=== PATIENT | male | born 1955 | race Caucasian/White ===

== ENCOUNTER 2019-01-14 17:21 | Inpatient (IN) | payer MEDICARE ==
--- NOTE | 2019-01-14 18:00 | ED ---
Psych HPI - General Chief Complaint: Psychiatric Symptoms Stated Complaint: petition Time Seen by Provider: 01/14/19 17:39 Source: patient, police, RN notes reviewed Mode of arrival: ambulatory - History of Present Illness Initial Comments: This is a 63-year-old male history of schizophrenia who is here a pickup order. He's been hallucinating thinking people are out to get him and kill him try to poison him. He is a disheveled demonstrate poor hygiene. He was brought in by [facility]. He denies any problems other than fingernail problems. MD Complaint: other - Related Data Home Medications Medication Instructions Recorded Confirmed No Known Home Medications 08/30/15 01/14/19 Allergies Allergy/AdvReac Type Severity Reaction Status Date / Time Penicillins Allergy Anaphylaxis Verified 01/14/19 18:11 Review of Systems ROS Statement: Those systems with pertinent positive or pertinent negative responses have been documented in the HPI. ROS Other: All systems not noted in ROS Statement are negative. Past Medical History Past Medical History: No Reported History History of Any Multi-Drug Resistant Organisms: None Reported Past Surgical History: Orthopedic Surgery Past Psychological History: No Psychological Hx Reported, Bipolar, Depression, Schizophrenia Smoking Status: Former smoker Past Alcohol Use History: Occasional Past Drug Use History: Marijuana General Exam - General Exam Comments Initial Comments: This is a well-developed well-nourished awake alert oriented times female who does demonstrate some flight of ideas he does demonstrate poor hygiene Limitations: no limitations General appearance: alert, anxious Head exam: Present: atraumatic, normocephalic, normal inspection Eye exam: Present: normal appearance, PERRL, EOMI. Absent: scleral icterus, conjunctival injection, periorbital swelling ENT exam: Present: normal exam, mucous membranes moist Neck exam: Present: normal inspection. Absent: tenderness, meningismus, lymphadenopathy Respiratory exam: Present: normal lung sounds bilaterally. Absent: respiratory distress, wheezes, rales, rhonchi, stridor Cardiovascular Exam: Present: regular rate, normal rhythm, normal heart sounds. Absent: systolic murmur, diastolic murmur, rubs, gallop, clicks GI/Abdominal exam: Present: soft, normal bowel sounds. Absent: distended, tenderness, guarding, rebound, rigid Extremities exam: Present: normal inspection, full ROM, normal capillary refill. Absent: tenderness, pedal edema, joint swelling, calf tenderness Back exam: Present: normal inspection Neurological exam: Present: alert, oriented X3, CN II-XII intact Psychiatric exam: Present: anxious, manic Skin exam: Present: warm, dry, intact, normal color. Absent: rash Course Vital Signs 01/14/19 01/14/19 17:25 18:28 Temperature 100.0 F H 98.8 F Pulse Rate 119 H 86 Respiratory 22 17 Rate Blood Pressure 194/138 169/109 O2 Sat by Pulse 99 100 Oximetry - Reevaluation(s) Reevaluation #1: 01/14/19 21:02 Patient medically cleared and believe the elevated temperature secondary to smoking this prior to her temperature being taken also he was dehydrated is improved after IV fluids Medical Decision Making - Medical Decision Making Treatment with medical clearance evaluated by the EPS department he was admitted. I did fill out a clinical certification. - Lab Data Result diagrams: 01/14/19 19:13 01/14/19 19:13 Lab Results 01/14/19 01/14/19 01/14/19 Range/Units 19:13 19:13 20:23 WBC 11.9 H (3.8-10.6) k/uL RBC 5.32 (4.30-5.90) m/uL Hgb 16.1 (13.0-17.5) gm/dL Hct 47.6 (39.0-53.0) % MCV 89.5 (80.0-100.0) fL MCH 30.3 (25.0-35.0) pg MCHC 33.9 (31.0-37.0) g/dL RDW 13.6 (11.5-15.5) % Plt Count 285 (150-450) k/uL Neutrophils % 82 % Lymphocytes % 9 % Monocytes % 6 % Eosinophils % 2 % Basophils % 1 % Neutrophils # 9.7 H (1.3-7.7) k/uL Lymphocytes # 1.1 (1.0-4.8) k/uL Monocytes # 0.7 (0-1.0) k/uL Eosinophils # 0.2 (0-0.7) k/uL Basophils # 0.1 (0-0.2) k/uL Sodium 141 (137-145) mmol/L Potassium 4.2 (3.5-5.1) mmol/L Chloride 102 (98-107) mmol/L Carbon Dioxide 26 (22-30) mmol/L Anion Gap 13 mmol/L BUN 19 (9-20) mg/dL Creatinine 0.92 (0.66-1.25) mg/dL Est GFR (CKD-EPI)AfAm >90 (>60 ml/min/1.73 sqM) Est GFR (CKD-EPI)NonAf 88 (>60 ml/min/1.73 sqM) Glucose 107 H (74-99) mg/dL Calcium 10.3 H (8.4-10.2) mg/dL Total Bilirubin 0.7 (0.2-1.3) mg/dL AST 25 (17-59) U/L ALT 14 L (21-72) U/L Alkaline Phosphatase 54 (38-126) U/L Creatine Kinase 102 (55-170) U/L Total Protein 7.7 (6.3-8.2) g/dL Albumin 4.7 (3.5-5.0) g/dL Urine Color Light Yellow Urine Appearance Clear (Clear) Urine pH 6.5 (5.0-8.0) Ur Specific [place] 1.008 (1.001-1.035) Urine Protein Negative (Negative) Urine Glucose (UA) Negative (Negative) Urine Ketones Negative (Negative) Urine Blood Negative (Negative) Urine Nitrite Negative (Negative) Urine Bilirubin Negative (Negative) Urine Urobilinogen <2.0 (<2.0) mg/dL Ur Leukocyte Esterase Small H (Negative) Urine RBC 1 (0-5) /hpf Urine WBC 5 (0-5) /hpf Urine Mucus Occasional H (None) /hpf Urine Opiates Screen Not Detected (NotDetected) Ur Oxycodone Screen Not Detected (NotDetected) Urine Methadone Screen Not Detected (NotDetected) Ur Propoxyphene Screen Not Detected (NotDetected) Ur Barbiturates Screen Not Detected (NotDetected) U Tricyclic Antidepress Not Detected (NotDetected) Ur Phencyclidine Scrn Not Detected (NotDetected) Ur Amphetamines Screen Not Detected (NotDetected) U Methamphetamines Scrn Not Detected (NotDetected) U Benzodiazepines Scrn Not Detected (NotDetected) Urine Cocaine Screen Not Detected (NotDetected) U Marijuana (THC) Screen Detected H (NotDetected) - Radiology Data Radiology results: report reviewed (Review the imaging and report no acute findings), image reviewed Disposition Clinical Impression: Schizophrenia, acute, Dehydration, Tachycardia Disposition: TRANSFER TO PSYCH HOSP/UNIT Condition: Stable Referrals: None,Stated [Primary Care Provider] - 1-2 days
--- NOTE | 2019-01-14 19:25 | XR ---
EXAMINATION: XR chest 2V DATE AND TIME: 01/14/2019 6:30 PM CLINICAL INDICATION: PHH; cough TECHNIQUE: Departmental protocol COMPARISON: None FINDINGS: The lungs are clear. The pleural spaces are negative. The cardiac silhouette is not enlarged. The remainder of the mediastinal silhouette is unremarkable. The skeletal structures and soft tissues are negative for acute findings. IMPRESSION: NO ACUTE PROCESS.
[2019-01-14 19:30] LABS: Basophils # (A) 0.1 k/uL (0-0.2); Basophils % (A) 1 %; Eosinophils # (A) 0.2 k/uL (0-0.7); Eosinophils % (A) 2 %; HCT 47.6 % (39.0-53.0); HGB 16.1 gm/dL (13.0-17.5); Lymphocytes # (A) 1.1 k/uL (1.0-4.8); Lymphocytes % (A) 9 %; MCH 30.3 pg (25.0-35.0); MCHC 33.9 g/dL (31.0-37.0); MCV 89.5 fL (80.0-100.0); Mean Platelet Volume 6.8; Monocytes # (A) 0.7 k/uL (0-1.0); Monocytes % (A) 6 %; Neutrophils # (A) 9.7 k/uL (1.3-7.7); Neutrophils % (A) 82 %; Platelet Count 285 k/uL (150-450); RBC 5.32 m/uL (4.30-5.90); RDW 13.6 % (11.5-15.5); WBC 11.9 k/uL (3.8-10.6)
[2019-01-14 19:38] LABS: ALT 14 U/L (21-72); AST 25 U/L (17-59); African American GFR (CKD) >90 (>60 ml/min/1.73 sqM); Albumin 4.7 g/dL (3.5-5.0); Alkaline Phosphatase 54 U/L (38-126); Anion Gap 13 mmol/L; Blood Urea Nitrogen 19 mg/dL (9-20); Calcium 10.3 mg/dL (8.4-10.2); Carbon Dioxide 26 mmol/L (22-30); Chloride 102 mmol/L (98-107); Creatine Kinase 102 U/L (55-170); Glucose 107 mg/dL (74-99); Non-African American GFR(CKD) 88 (>60 ml/min/1.73 sqM); Potassium 4.2 mmol/L (3.5-5.1); Sodium 141 mmol/L (137-145); Total Bilirubin 0.7 mg/dL (0.2-1.3); Total Protein 7.7 g/dL (6.3-8.2)
[2019-01-14] MEDS ORDERED: SODIUM CHLORIDE 0.9% 1,000 ML IV STA (19:46)
[2019-01-14 20:45] LABS: Appearance,Urine Clear (Clear); Bilirubin,Urine Negative (Negative); Blood,Urine Negative (Negative); Color,Urine Light Yellow; Glucose,Urine (UA) Negative (Negative); Ketones,Urine Negative (Negative); Leukocyte Esterase,Urine Small (Negative); Mucus,Urine Occasional /hpf; Nitrite,Urine Negative (Negative); PH, Urine 6.5 (5.0-8.0); Protein,Urine Negative (Negative); RBC,Urine 1 /hpf (0-5); Specific Gravity,Urine 1.008 (1.001-1.035); Urobilinogen,Urine <2.0 mg/dL (<2.0); WBC,Urine 5 /hpf (0-5)
[2019-01-14 20:53] LABS: Amphetamine Screen,Urine Not Detected (NotDetected); Barbiturate Screen,Urine Not Detected (NotDetected); Benzodiazepines Screen,Urine Not Detected (NotDetected); Cocaine Screen,Urine Not Detected (NotDetected); Methadone Screen, Urine Not Detected (NotDetected); Opiate Screen,Urine Not Detected (NotDetected); Oxycodone Screen, Urine Not Detected (NotDetected); Phencyclidine Screen,Urine Not Detected (NotDetected); Tricyclic Antidepressant,Urine Not Detected (NotDetected); Urn Cannabinoid Scrn Detected (NotDetected)
[2019-01-14] MEDS ORDERED: hydrALAZINE HCL 20 MG/ML 1 ML VIAL IVP STA (21:50)
[2019-01-14] MEDS ORDERED: ACETAMINOPHEN TAB 500 MG TAB PO STA (21:59)
[2019-01-14] MEDS ORDERED: MAG HYDROX/AL HYDROX/SIMETH 30 ML CUP PO PRN (22:35)
[2019-01-14] MEDS ORDERED: ACETAMINOPHEN TAB 325 MG TAB PO PRN (22:35)
[2019-01-14] MEDS ORDERED: MAGNESIUM HYDROXIDE 2,400 MG/10 ML CUP PO PRN (22:35)
[2019-01-14] MEDS ORDERED: ZIPRASIDONE 20 MG VIAL IM PRN (22:35)
[2019-01-14] MEDS ORDERED: LORazepam 2 MG/ML INJ IM PRN (22:41)
[2019-01-15 00:02] VITALS: BMI 25.9
--- NOTE | 2019-01-15 02:01 | P.MDCNMH ---
History of Present Illness H&P Date: 01/15/19 Chief Complaint: Acute psychosis 63-year-old male denies any past medical history Patient denies any current complaints he denies any mental health problems. However by reviewing records seems like Police Department brought to the hospital due to acute psychosis and hallucinations patient has history of schizophrenia seems like he's not been compliant with medications. I ideation thinking people trying to poison him He currently denies any chest pain fevers chills coughing shortness of breath abdominal pain nausea vomiting Review of Systems Pertinent positives as noted in HPI. All other systems were reviewed and are negative Past Medical History Past Medical History: No Reported History History of Any Multi-Drug Resistant Organisms: None Reported Past Surgical History: Orthopedic Surgery Additional Past Surgical History / Comment(s): Left knee surg Past Psychological History: No Psychological Hx Reported, Bipolar, Depression, Schizophrenia Smoking Status: Former smoker Past Alcohol Use History: Occasional Past Drug Use History: Marijuana Medications and Allergies Home Medications Medication Instructions Recorded Confirmed Type No Known Home Medications 08/30/15 01/15/19 History Allergies Allergy/AdvReac Type Severity Reaction Status Date / Time Penicillins Allergy Unknown Anaphylaxis Verified 01/15/19 00:53 Physical Exam Vitals: Vital Signs Temp Pulse Pulse Resp BP BP Pulse Ox 01/14/19 23:54 97.7 F 100 16 145/99 100 01/14/19 22:21 157/99 01/14/19 18:28 98.8 F 86 17 169/109 100 01/14/19 17:25 100.0 F H 119 H 22 194/138 99 Intake and Output 01/14/19 01/14/19 01/15/19 14:59 22:59 06:59 Other: Weight 84.958 kg 81.873 kg Constitutional: No acute distress, conversant, pleasant, patient cleaned up after taking shower Eyes: Anicteric sclerae, moist conjunctiva, no lid-lag Pupils equal round reactive to light ENMT: NC/AT Oropharynx clear, no erythema, exudates Neck: Supple, FROM, no masses, or JVD No carotid bruits No thyromegaly Lungs: Clear to auscultation Clear to percussion Normal respiratory effort, no accessory muscle use Cardiovascular: Heart regular in rate and rhythm, No murmurs, gallops, or rubs No peripheral edema Abdominal: Soft Nontender, no guarding, rebound or rigidity Abdomen moving with respiration Normoactive bowel sounds No hepatomegaly, No splenomegaly No palpable mass No abdominal wall hernia noted Skin: Normal temperature, tone, texture, turgor No induration No subcutaneous nodules No rash, lesions No ulcers Extremities: No digital cyanosis No clubbing Pedal pulses intact and symmetrical Radial pulses intact and symmetrical No calf tenderness Psychiatric: Alert and oriented to person, place and time Flight of ideas Poor judgment Neuro Muscles Strength 5/5 in all 4 extremities Sensation to light touch grossly present throughout Cranial nerves II-XII grossly intact No focal sensory deficits Lymphatics: no palpable cervical or supraclavicular , or inguinal lymph nodes Cranial Nerve Examination - Cranial Nerves Cranial Nerve II- Optic: Intact Cranial Nerve III- Oculomotor: Intact Cranial Nerve IV- Trochlear: Intact Cranial Nerve V- Trigeminal: Intact Cranial Nerve - Abducens: Intact Cranial Nerve VII- Facial: Intact Cranial Nerve VIII- Auditory: Intact Cranial Nerve IX- Glossopharyngeal: Intact Cranial Nerve X- Vagus: Intact Cranial Nerve XI- Accessory: Intact Cranial Nerve XII- Hypoglossal: Intact Results CBC & Chem 7: 01/14/19 19:13 01/14/19 19:13 Labs: Abnormal Lab Results - Last 24 Hours (Table) 01/14/19 01/14/19 01/14/19 Range/Units 19:13 19:13 20:23 WBC 11.9 H (3.8-10.6) k/uL Neutrophils # 9.7 H (1.3-7.7) k/uL Glucose 107 H (74-99) mg/dL Calcium 10.3 H (8.4-10.2) mg/dL ALT 14 L (21-72) U/L Ur Leukocyte Esterase Small H (Negative) Urine Mucus Occasional H (None) /hpf U Marijuana (THC) Screen Detected H (NotDetected) Assessment and Plan Assessment: 63-year-old male with history of schizophrenia brought into the hospital by police department due to abnormal behaviors and hallucinations Plan: Acute schizophrenia and hallucinations Management per psych Low risk for DVT patient ambulatory Thank you for allowing us to participate in the care of this patient. We will follow peripherally. Do not hesitate to contact us with questions. Someone can be reached from the [facility] hospitalist group at all hours of the day at [phone].
[2019-01-15] MEDS: LORazepam 1 MG TAB PO PRN ×2 (05:19→12:35)
[2019-01-15 11:54] LABS: Hemoglobin A1C 5.5 % (4.0-6.0)
[2019-01-15] MEDS: HALOPERIDOL 1 MG TAB PO SCH ×2 (12:35→20:32)
[2019-01-15] MEDS ORDERED: HALOPERIDOL LACTATE 5 MG/ML 1 ML VIAL IM PRN (13:12)
--- NOTE | 2019-01-15 13:24 | P.HP ---
Psychiatric H&P - . H&P Date: 01/15/19 History & Physical: Allergies Allergy/AdvReac Type Severity Reaction Status Date / Time Penicillins Allergy Unknown Anaphylaxis Verified 01/15/19 00:53 Vital Signs Temp 97.8 F 01/15/19 06:41 Pulse 76 01/15/19 06:41 Resp 20 01/15/19 06:41 BP 139/68 01/15/19 06:41 Pulse Ox 100 01/14/19 23:54 Intake & Output 01/14/19 01/15/19 01/15/19 18:59 06:59 18:59 Weight 84.958 kg 81.873 kg Laboratory Last Values WBC 11.9 k/uL (3.8-10.6) H 01/14/19 19:13 RBC 5.32 m/uL (4.30-5.90) 01/14/19 19:13 Hgb 16.1 gm/dL (13.0-17.5) 01/14/19 19:13 Hct 47.6 % (39.0-53.0) 01/14/19 19:13 MCV 89.5 fL (80.0-100.0) 01/14/19 19:13 MCH 30.3 pg (25.0-35.0) 01/14/19 19:13 MCHC 33.9 g/dL (31.0-37.0) 01/14/19 19:13 RDW 13.6 % (11.5-15.5) 01/14/19 19:13 Plt Count 285 k/uL (150-450) 01/14/19 19:13 Neutrophils % 82 % 01/14/19 19:13 Lymphocytes % 9 % 01/14/19 19:13 Monocytes % 6 % 01/14/19 19:13 Eosinophils % 2 % 01/14/19 19:13 Basophils % 1 % 01/14/19 19:13 Neutrophils # 9.7 k/uL (1.3-7.7) H 01/14/19 19:13 Lymphocytes # 1.1 k/uL (1.0-4.8) 01/14/19 19:13 Monocytes # 0.7 k/uL (0-1.0) 01/14/19 19:13 Eosinophils # 0.2 k/uL (0-0.7) 01/14/19 19:13 Basophils # 0.1 k/uL (0-0.2) 01/14/19 19:13 Sodium 141 mmol/L (137-145) 01/14/19 19:13 Potassium 4.2 mmol/L (3.5-5.1) 01/14/19 19:13 Chloride 102 mmol/L (98-107) 01/14/19 19:13 Carbon Dioxide 26 mmol/L (22-30) 01/14/19 19:13 Anion Gap 13 mmol/L 01/14/19 19:13 BUN 19 mg/dL (9-20) 01/14/19 19:13 Creatinine 0.92 mg/dL (0.66-1.25) 01/14/19 19:13 Est GFR (CKD-EPI)AfAm >90 (>60 ml/min/1.73 sqM) 01/14/19 19:13 Est GFR (CKD-EPI)NonAf 88 (>60 ml/min/1.73 sqM) 01/14/19 19:13 Glucose 107 mg/dL (74-99) H 01/14/19 19:[address] Glu mg/dL 111 01/14/19 19:13 Hemoglobin A1c 5.5 % (4.0-6.0) 01/14/19 19:13 Calcium 10.3 mg/dL (8.4-10.2) H 01/14/19 19:13 Total Bilirubin 0.7 mg/dL (0.2-1.3) 01/14/19 19:13 AST 25 U/L (17-59) 01/14/19 19:13 ALT 14 U/L (21-72) L 01/14/19 19:13 Alkaline Phosphatase 54 U/L (38-126) 01/14/19 19:13 Creatine Kinase 102 U/L (55-170) 01/14/19 19:13 Total Protein 7.7 g/dL (6.3-8.2) 01/14/19 19:13 Albumin 4.7 g/dL (3.5-5.0) 01/14/19 19:13 Triglycerides 142 mg/dL (<150) 01/14/19 19:13 Cholesterol 198 mg/dL (<200) 01/14/19 19:13 LDL Cholesterol, Calc 85 mg/dL (0-99) 01/14/19 19:13 HDL Cholesterol 85 mg/dL (40-60) H 01/14/19 19:13 TSH 2.860 mIU/L (0.465-4.680) 01/14/19 19:13 Urine Color Light Yellow 01/14/19 20:23 Urine Appearance Clear (Clear) 01/14/19 20:23 Urine pH 6.5 (5.0-8.0) 01/14/19 20:23 Ur Specific [place] 1.008 (1.001-1.035) 01/14/19 20:23 Urine Protein Negative (Negative) 01/14/19 20:23 Urine Glucose (UA) Negative (Negative) 01/14/19 20:23 Urine Ketones Negative (Negative) 01/14/19 20:23 Urine Blood Negative (Negative) 01/14/19 20:23 Urine Nitrite Negative (Negative) 01/14/19 20:23 Urine Bilirubin Negative (Negative) 01/14/19 20:23 Urine Urobilinogen <2.0 mg/dL (<2.0) 01/14/19 20:23 Ur Leukocyte Esterase Small (Negative) H 01/14/19 20:23 Urine RBC 1 /hpf (0-5) 01/14/19 20:23 Urine WBC 5 /hpf (0-5) 01/14/19 20:23 Urine Mucus Occasional /hpf (None) H 01/14/19 20:23 Urine Opiates Screen Not Detected (NotDetected) 01/14/19 20:23 Ur Oxycodone Screen Not Detected (NotDetected) 01/14/19 20:23 Urine Methadone Screen Not Detected (NotDetected) 01/14/19 20:23 Ur Propoxyphene Screen Not Detected (NotDetected) 01/14/19 20:23 Ur Barbiturates Screen Not Detected (NotDetected) 01/14/19 20:23 U Tricyclic Antidepress Not Detected (NotDetected) 01/14/19 20:23 Ur Phencyclidine Scrn Not Detected (NotDetected) 01/14/19 20:23 Ur Amphetamines Screen Not Detected (NotDetected) 01/14/19 20:23 U Methamphetamines Scrn Not Detected (NotDetected) 01/14/19 20:23 U Benzodiazepines Scrn Not Detected (NotDetected) 01/14/19 20:23 Urine Cocaine Screen Not Detected (NotDetected) 01/14/19 20:23 U Marijuana (THC) Screen Detected (NotDetected) H 01/14/19 20:23 01/15/19 13:14 IDENTIFYING DATA: Patient is a 63-year-old male with a history of schizophrenia who lives in a trailer, alone, unmarried, no kids and currently on Social Security HPI: Patient presented to the hospital escorted by police due to acute psychotic behavior. Patient was reported to be delusional/paranoid that his sister was trying to poison him and was failing to care for himself and not compliant with his medications. Patient was seen today in his room and was directable and agreeable to be interviewed by check writer salesperson in the office. Patient appeared to be disheveled and claimed that she has been in a psychiatric hospital before and doesn't understand why he is here now. Patient was preoccupied with delusion of sister trying to poison him and states that he has multiple records beginning in 2013 of various attempts that she had of trying to poison him. When asked how he knows that it was her, patient was disorganized and his answer and illogical. Patient also claims that she was feeling like his heart was racing and his tonsils were "drooling is having a headache and he thinks that it may have been a neuro toxin. Patient was bizarre and illogical and hyperverbal throughout the interview. Patient denies any suicidal or homicidal ideations intent or plan. At this time patient denies any auditory or visual hallucinations. Patient denies any flight of ideas racing thoughts and increased in goal directed behavior. Patient admits to using marijuana regularly however does not give quantity. Patient states that his sleep is okay and that easy eating okay. PAST PSYCHIATRIC HISTORY: History of schizophrenia, unsure of patient's outpatient psychiatrist and follow-up. Patient denies being on any medications in the past. Patient states that he was in [facility] hospital in the 90s. He denies any suicide attempts in the past. PMH: Hypertension ALLERGIES: Penicillin CHEMICAL DEPENDENCY HISTORY: Uses cannabis frequently however does not give quantity. Denies any other illicit drug use. FAMILY PSYCHIATRIC/SUBSTANCE USE HISTORY: Denies SOCIAL HISTORY: Currently lives in [facility] in a trailer, is unmarried and currently collects [employer]. He states that he has a 12th grade education. MENTAL STATUS EXAM: General Appearance: Patient appears to be older than stated age, is alert and somewhat directable. Vision has poor hygiene and poor grooming. Behavior: Patient appears to be anxious Speech: Patient's speech is fluent however is hyperverbal Mood/Affect: Patient reports their mood is good, affect is congruent and constricted Suicidality/Homicidality: Patient denies having any suicidal or homicidal ideation intent or plan. Perceptions: Patient denies any auditory or visual hallucinations. Though content/process: Patient perseverates on delusion of being poisoned. Is illogical and bizarre at times, and tangential Memory and concentration: AOX3, grossly intact for the purposes of this session. Can spell "WORLD" backwards Judgment and insight: Poor STRENGTHS/WEAKNESSES: A close family however has poor coping skills and history of chronic mental illness. INTELLECT: Below average IMPRESSIONS: Schizophrenia PLAN: -Patient is admitted under voluntary status to MHU for stabilization of psychiatric symptoms and safety. Patient signed adult voluntary form and medication consent and was placed in chart -Will start patient on haloperidol 3 mg by mouth twice a day for psychosis. -Haldol and Ativan PRN for agitation/aggression -Patient was counselled on substance abuse and desired to cut back on use -Patient was informed of the risks, benefits and side effects of the medication and patient verbally consented to taking the medications. Patient signed med consent form and was placed in chart. -No nicotine replacement was offered as patient claims he does not smoke. -SW on board for discharge planning. 01/15/19 13:16 01/15/19 13:23 01/15/19 13:24
[2019-01-16] MEDS: HALOPERIDOL 1 MG TAB PO SCH (08:31)
--- NOTE | 2019-01-16 10:26 | P.PN ---
Progress Note - Text Progress Note Date: 01/16/19 Interval History: Patient was seen in group today and was willing to speak to senior medical writer in the offi ce. Patient was calm and directable. Patient appeared to be more appropriate this morning during interview continues to be hyperverbal and preoccupied with the courts. He states that he was sleeping well last night however had a new roommate which came in at 5 AM and states that he can go back to sleep after that. Patient claims that he is trying to get to know other people on the unit and participating in groups. He states that one of his sisters is in a come visit him over the weekend which she is excited for. Patient denies any tremors or any muscle stiffness/EPS symptoms at this time. At this time patient denies any suicidal or homical ideations, intent or plan. Patient denies any auditory, visual hallucinations and denies any paranoia or delusions. Patient has been compliant with meds. Mental Status Exam: General Appearance: [Patient appears to be stated age is alert, pleasant, and cooperative.] Patient's hygiene and grooming gradually improving. Behavior: [Patient is calmly seated without any agitated behavior.] Speech: Patient's speech is fluent and nonpressured. Mood/Affect: Patient reports their mood is improving, affect is congruent and constricted. Suicidality/Homicidality: Patient denies having any suicidal or homicidal ideation intent or plan. Perceptions: Patient denies any auditory or visual hallucinations. Though content/process: [There is no evidence of any delusional thought content and thought process is linear and goal-directed.] Patient continues to be preoccupied with the courts. Memory and concentration: AOX3, grossly intact for the purposes of this session Judgment and insight: Poor IMPRESSIONS: Schizophrenia Cannabis use disorder PLAN: -Patient is admitted under voluntary status to MHU for stabilization of psychiatric symptoms and safety. Patient continues to meet criteria for inpatient hospitalization. Patient signed adult voluntary form and medication consent and is in chart -Will continue with haloperidol 3 mg by mouth twice a day for psychosis. Plan to increase to haloperidol 3 mg every morning +5 mg at night on Saturday. -Haldol and Ativan PRN for agitation/aggression -Patient was counselled on substance abuse and desired to cut back on use -SW on board for discharge planning.
[2019-01-16] MEDS: HALOPERIDOL 5 MG TAB PO SCH (21:03)
[2019-01-17] MEDS: HALOPERIDOL 1 MG TAB PO SCH (08:42)
--- NOTE | 2019-01-17 14:37 | P.PN ---
Progress Note - Text Progress Note Date: 01/17/19 Interval history: Patient is seen in cross coverage today. He reports he has been going to groups. He does describe as a side effect some restless feelings in his knees but describes that it is tolerable. Mental status exam: He is alert and cooperative with the interview. His speech is fluent, not rapid or pressured. His thought processes are organized. His mood currently seems to be pretty stable. He denies any hallucinations, does not verbalize any thoughts of harm to self or others. He does not show any agitation. He does not make any oxana delusional statements. Plan: Patient will be maintained on current psychotropic medication regimen. Continue to monitor regarding medication side effects and monitor his ongoing response to treatment. We'll continue to cover this patient through the weekend.
[2019-01-17] MEDS: HALOPERIDOL 5 MG TAB PO SCH (21:20)
[2019-01-18] MEDS: HALOPERIDOL 1 MG TAB PO SCH (07:49)
--- NOTE | 2019-01-18 16:02 | P.PN ---
Progress Note - Text Progress Note Date: 01/18/19 Interval history: Patient is seen in [facility] again today. He slept about 7 a half hour last night. He seems to be eating well. He does not voice any adverse psychotropic medication side effects. He says that restlessness feeling is gone. Mental status exam: He is alert and cooperative with the interview. Speech is fluent, not rapid or pressured. Thought processes are organized. He does not verbalize any hallucinations. He does not verbalize any thoughts of harm to self or others. He does not show any agitation. He does not make any delusional statements. Plan: Patient will be maintained on current psychotropic medication regimen. Continue to monitor for any medication side effects and monitor his ongoing response to treatment.
[2019-01-18] MEDS: HALOPERIDOL 5 MG TAB PO SCH (20:19)
[2019-01-19] MEDS: HALOPERIDOL 1 MG TAB PO SCH (08:05)
--- NOTE | 2019-01-19 09:17 | P.CONS ---
History of Present Illness - Reason for Consult Consult date: 01/19/19 Positive blood culture - History of Present Illness This is a 63-year-old male with past medical history of schizophrenia, presented to [facility] by a sheriff's officer department from a pickup order. Patient apparently was having hallucinations and 20 people were out to get him and kill him and poison him. Patient was subsequently admitted into the mental health unit. He has been afebrile, WBC count 11.9, creatinine 0.9 to, albumin 4.7. Hemoglobin A1c 5.5. TSH is 2.860. Urinalysis was negative for infection. Urine drug screen positive for marijuana. Chest x-ray shows no acute process. Blood culture obtained in the emergency center was positive for gram-positive bacilli. Patient denies any other complaints except that he has multiple flea bites to his lower extremity and abdomen. Review of Systems Constitutional: Denies anorexia, Denies chills, Denies fatigue, Denies fever, Denies lethargy, Denies malaise, Denies poor appetite, Denies weakness, Denies weight loss Ears, nose, mouth and throat: Denies dysphagia, Denies mouth pain, Denies nasal congestion, Denies nasal discharge, Denies sore throat, Denies vertigo Cardiovascular: Denies chest pain, Denies decreased exercise tolerance, Denies dyspnea on exertion, Denies edema, Denies leg edema, Denies shortness of breath, Denies syncope Respiratory: Denies congestion, Denies cough, Denies cough with sputum, Denies dyspnea, Denies excessive sputum, Denies hemoptysis, Denies home oxygen, Denies wheezing Gastrointestinal: Denies abdominal pain, Denies constipation, Denies diarrhea, Denies loss of appetite, Denies nausea, Denies vomiting Genitourinary: Denies dysuria, Denies urinary retention Musculoskeletal: Denies frequent falls, Denies gait dysfunction, Denies muscle weakness Integumentary: Reports sores, Denies pruritus, Denies rash Neurological: Denies aphasia, Denies change in mentation, Denies change in speech, Denies seizures Endocrine: Denies fatigue, Denies weight change Past Medical History Past Medical History: No Reported History History of Any Multi-Drug Resistant Organisms: None Reported Past Surgical History: Orthopedic Surgery Additional Past Surgical History / Comment(s): Left knee surg Past Psychological History: No Psychological Hx Reported, Bipolar, Depression, Schizophrenia Smoking Status: Former smoker Past Alcohol Use History: Occasional Additional Past Alcohol Use History / Comment(s): The patient was a smoker and quit 20 years ago. He states he uses marijuana when he can afford it. He uses alcohol rarely. Patient lives alone but has multiple indoor/outdoor cats in the house. No other animal exposures. Past Drug Use History: Marijuana Medications and Allergies Home Medications Medication Instructions Recorded Confirmed Type No Known Home Medications 08/30/15 01/15/19 History Allergies Allergy/AdvReac Type Severity Reaction Status Date / Time Penicillins Allergy Unknown Anaphylaxis Verified 01/15/19 00:53 Physical Exam Vitals: Vital Signs Temp Pulse Resp BP 01/19/19 06:51 97.8 F 68 20 137/83 Gen: This is a 63-year-old male. He is seen ambulating down the hallway, he can converse with good eye contact. No acute distress is noted. HEENT: Head is atraumatic, normocephalic. Pupils equal, round. Sclerae is a nicteric. Conjunctiva pink. Oral mucous membranes are moist. Dentition is in good order. No oropharyngeal edema or erythema. NECK: Supple. No JVD. No lymphadenopathy. No thyromegaly. LUNGS: Clear to auscultation. No wheezes or rhonchi. No intercostal retractions. HEART: Regular rate and rhythm. No murmur. ABDOMEN: Soft. Bowel sounds are present. No masses. No tenderness. EXTREMITIES: No pedal edema. No calf tenderness. Dorsalis pedis +2 bilaterally. NEUROLOGICAL: Patient is awake, alert and oriented x3. Cranial nerves 2 through 12 are grossly intact. Results CBC & Chem 7: 01/14/19 19:13 01/14/19 19:13 Labs: Microbiology - Last 24 Hours (Table) 01/14/19 19:13 Blood Culture Gram Stain - Preliminary Blood Assessment and Plan Plan: This is a 63-year-old male presented to the hospital by sheriff's officer department on a pickup order and subsequently admitted into the mental health unit. Blood culture obtained in the emergency center is positive for gram- positive bacilli which would be a contaminant. At this point, no need for antibiotics or further workup. The above dictated assessment and findings were discussed with Dr. Casiano. The impression and plan of care have been directed as dictated. Esperanza Convery nurse practitioner acting as scribe for Dr. Casiano.
[2019-01-19] MEDS ORDERED: HALOPERIDOL DECANOATE 100 MG/ML 1 ML VIAL IM STA (11:38)
--- NOTE | 2019-01-19 11:52 | P.PN ---
Progress Note - Text Progress Note Date: 01/19/19 Interval History: Patient was seen today in the hallways wandering and was directable and agreea ble to speak with marketing writer in room. Patient states that his weekend went better than he thought. He claims that he was visited by his sister which went well. He claims that he is also been going to groups as much as he can. He claims that his mood is gradually improving. Patient insight and judgment are improving mildly. Patient appears to be mildly less preoccupied with his sister trying to poison him. Patient claims he slept well throughout the night and is eating okay. Discussed with patient option for long-acting injection of Haldol and patient was agreeable to take medication today. At this time patient denies any suicidal or homical ideations, intent or plan. Patient denies any auditory, visual hallucinations and denies any paranoia or delusions Mental Status Exam: General Appearance: Patient appears to be stated age is alert, pleasant, and cooperative. Patient's hygiene and grooming gradually improving. Behavior: Patient is calmly seated without any agitated behavior. Speech: Patient's speech is fluent and nonpressured. Mood/Affect: Patient reports their mood is improving, affect is congruent and constricted. Suicidality/Homicidality: Patient denies having any suicidal or homicidal ideation intent or plan. Perceptions: Patient denies any auditory or visual hallucinations. Though content/process: There is no evidence of any delusional thought content and thought process is linear and goal-directed. Patient continues to be preoccupied with the courts. Memory and concentration: AOX3, grossly intact for the purposes of this session Judgment and insight: Improving IMPRESSIONS: Schizophrenia Cannabis use disorder PLAN: -Patient is admitted under voluntary status to MHU for stabilization of psychiatric symptoms and safety. Patient continues to meet criteria for inpatient hospitalization. -Discussed with patient in length of the benefits, risks and side effects of Haldol long-acting injection and patient asked appropriate questions. Patient was agreeable to commence Haldol Decanoate pharmacotherapy today. Ordered 100 mg 1 time dose to be given today. Will titrate off by mouth Haldol at this time. -Haldol and Ativan PRN for agitation/aggression -Patient was counselled on substance abuse and desired to cut back on use. Patient declined any assistance with this and treatment for substance use disorder. -SW on board for discharge planning. To connect with family and possible discharge for tomorrow back home with [facility] follow-up.
[2019-01-19] MEDS: HALOPERIDOL 5 MG TAB PO SCH (21:02)
[2019-01-20 06:41] VITALS: BP 127/81; PULSE 70; RESP 18; TEMP 98
[2019-01-20] MEDS: HALOPERIDOL 1 MG TAB PO SCH (08:52)
--- NOTE | 2019-01-20 11:43 | P.DS ---
Providers Date of admission: 01/14/19 22:32 Expected date of discharge: 01/20/19 Attending physician: Gio Vaca MD Consults: 01/14/19 22:35 Consult Physician Routine Consulting Provider: Uri Rees Consult Reason/Comments: H & P and medical care Do you want consulting provider notified?: Yes 01/18/19 11:39 Consult Physician Routine Consulting Provider: Ector Casiano Consult Reason/Comments: positive blood culture Do you want consulting provider notified?: Yes Primary care physician: Stated None - Discharge Diagnosis(es) (1) Schizophrenia, acute Current Visit: Yes Status: Acute Priority: High (2) Cannabis abuse Current Visit: Yes Status: Acute Priority: Medium Hospital Course: Summary of admission note: Patient is a 63-year-old male with a history of schizophrenia who lives in a trailer, alone, unmarried, no kids and currently on Social Security. Patient presented to the hospital escorted by police due to acute psychotic behavior. Patient was reported to be delusional/paranoid that his sister was trying to poison him and was failing to care for himself and not compliant with his medications. Patient was seen today in his room and was directable and agreeable to be interviewed by rewriter in the office. Patient appeared to be disheveled and claimed that she has been in a psychiatric hospital before and doesn't understand why he is here now. Patient was preoccupied with delusion of sister trying to poison him and states that he has multiple records beginning in 2013 of various attempts that she had of trying to poison him. When asked how he knows that it was her, patient was disorganized and his answer and illogical. Patient also claims that she was feeling like his heart was racing and his tonsils were "drooling is having a headache and he thinks that it may have been a neuro toxin. Patient was bizarre and illogical and hyperverbal throughout the interview. Patient denies any suicidal or homicidal ideations intent or plan. At this time patient denies any auditory or visual hallucinations. Patient denies any flight of ideas racing thoughts and increased in goal directed behavior. Patient admits to using marijuana regularly however does not give quantity. Patient states that his sleep is okay and that easy eating okay. Hospital course: Upon admission to the unit patient was initially hyperverbal, paranoid and displayed bizarre psychotic behavior. Patient was initially hard to redirect and racing thoughts, was preoccupied with persecutory delusions of being poisoned. With treatment and time, patient got along well with other patients on the unit and followed unit protocol. Patient was compliant with his medications and denied any side effects throughout his hospital course. Patient was started on haloperidol 3 mg every morning +5 mg daily at bedtime for psychosis. Patient spoke of his stressors and engaged in therapy both group and individual. Patient was also seen by medical team for history and physical exam. Throughout the course of the hospitalization patient gradually improved with regards to mood, psychotic behavior, paranoia and became future oriented and improved judgment and insight. On 01/19/2019 patient agreed to and received Haldol Decanoate 100 mg IM injection to ensure med compliance, patient agreed to monthly injections as an outpatient and verbalize the importance of this. On the day of discharge patient denied any suicidal or homicidal ideations intent or plan denied any auditory or visual hallucinations. Patient denied any paranoia and did not endorse any delusions. Patient did mention that he has a significant history of smoking cannabis and was informed of the, patient verbally understood and agreed to cut back. [Patient was also counseled on the medications and need for regular compliance and was encouraged to follow-up with their outpatient appointment for mental health and also for primary care.] Mental status exam: General Appearance: [Patient appears to be stated age is alert, pleasant, and cooperative. Patient is in no acute distress and has fair hygiene and grooming] Behavior: [Patient is calmly seated without any agitated behavior.] Speech: Patient's speech is fluent and nonpressured. Mood/Affect: Patient reports their mood is much better, affect is congruent and euthymic. Suicidality/Homicidality: Patient denies having any suicidal or homicidal ideation intent or plan. Perceptions: Patient denies any auditory or visual hallucinations. Though content/process: Patient does not endorse any delusions at this time and thought process is linear and goal-directed. Memory and concentration: AOX3, grossly intact for the purposes of this session. Can spell "WORLD" backwards correctly. Judgment and insight: fair, improving Impression: Schizophrenia, acute Cannabis use disorder. Plan: -Continue with discharge today as patient has improved and stabilized psychiatrically and no longer remains an imminent threat to [himself] and/or others. -Continue medications: Patient will be discontinued off by mouth Haldol and can continue with Haldol Decanoate long-acting IM every 4 weeks. Patient received 100 mg IM dose on 01/19/2019 and will be due for next injection on 02/16/2019. Provided patient with prescription for next injection. -Patient was counseled on the need for medication compliance and appropriate follow-up at mental health and also primary care for medical issues. Patient verbalized understanding and agreed. -Social work to give patient substance use treatment information/resources. Patient will need to be enrolled in [facility] for follow-up. Social work to reach out to him patient's sister to communicate the plan and prepare for discharge today. -Patient counseled on abstaining from recreational drugs and marijuana and alcohol. Patient was informed of the risks and effects on his mental and physical health, patient verbally understood and agreed. -Patient was instructed to return to the hospital or seek immediate medical care if their psychiatric or medical systems do worsen or reoccur. Allergies Allergy/AdvReac Type Severity Reaction Status Date / Time Penicillins Allergy Unknown Anaphylaxis Verified 01/15/19 00:53 Laboratory Results WBC 11.9 k/uL (3.8-10.6) H 01/14/19 19:13 RBC 5.32 m/uL (4.30-5.90) 01/14/19 19:13 Hgb 16.1 gm/dL (13.0-17.5) 01/14/19 19:13 Hct 47.6 % (39.0-53.0) 01/14/19 19:13 MCV 89.5 fL (80.0-100.0) 01/14/19 19:13 MCH 30.3 pg (25.0-35.0) 01/14/19 19:13 MCHC 33.9 g/dL (31.0-37.0) 01/14/19 19:13 RDW 13.6 % (11.5-15.5) 01/14/19 19:13 Plt Count 285 k/uL (150-450) 01/14/19 19:13 Neutrophils % 82 % 01/14/19 19:13 Lymphocytes % 9 % 01/14/19 19:13 Monocytes % 6 % 01/14/19 19:13 Eosinophils % 2 % 01/14/19 19:13 Basophils % 1 % 01/14/19 19:13 Neutrophils # 9.7 k/uL (1.3-7.7) H 01/14/19 19:13 Lymphocytes # 1.1 k/uL (1.0-4.8) 01/14/19 19:13 Monocytes # 0.7 k/uL (0-1.0) 01/14/19 19:13 Eosinophils # 0.2 k/uL (0-0.7) 01/14/19 19:13 Basophils # 0.1 k/uL (0-0.2) 01/14/19 19:13 Sodium 141 mmol/L (137-145) 01/14/19 19:13 Potassium 4.2 mmol/L (3.5-5.1) 01/14/19 19:13 Chloride 102 mmol/L (98-107) 01/14/19 19:13 Carbon Dioxide 26 mmol/L (22-30) 01/14/19 19:13 Anion Gap 13 mmol/L 01/14/19 19:13 BUN 19 mg/dL (9-20) 01/14/19 19:13 Creatinine 0.92 mg/dL (0.66-1.25) 01/14/19 19:13 Est GFR (CKD-EPI)AfAm >90 (>60 ml/min/1.73 sqM) 01/14/19 19:13 Est GFR (CKD-EPI)NonAf 88 (>60 ml/min/1.73 sqM) 01/14/19 19:13 Glucose 107 mg/dL (74-99) H 01/14/19 19:[address] Glu mg/dL 111 01/14/19 19:13 Hemoglobin A1c 5.5 % (4.0-6.0) 01/14/19 19:13 Calcium 10.3 mg/dL (8.4-10.2) H 01/14/19 19:13 Total Bilirubin 0.7 mg/dL (0.2-1.3) 01/14/19 19:13 AST 25 U/L (17-59) 01/14/19 19:13 ALT 14 U/L (21-72) L 01/14/19 19:13 Alkaline Phosphatase 54 U/L (38-126) 01/14/19 19:13 Creatine Kinase 102 U/L (55-170) 01/14/19 19:13 Total Protein 7.7 g/dL (6.3-8.2) 01/14/19 19:13 Albumin 4.7 g/dL (3.5-5.0) 01/14/19 19:13 Triglycerides 142 mg/dL (<150) 01/14/19 19:13 Cholesterol 198 mg/dL (<200) 01/14/19 19:13 LDL Cholesterol, Calc 85 mg/dL (0-99) 01/14/19 19:13 HDL Cholesterol 85 mg/dL (40-60) H 01/14/19 19:13 TSH 2.860 mIU/L (0.465-4.680) 01/14/19 19:13 Urine Color Light Yellow 01/14/19 20:23 Urine Appearance Clear (Clear) 01/14/19 20:23 Urine pH 6.5 (5.0-8.0) 01/14/19 20:23 Ur Specific [place] 1.008 (1.001-1.035) 01/14/19 20:23 Urine Protein Negative (Negative) 01/14/19 20:23 Urine Glucose (UA) Negative (Negative) 01/14/19 20:23 Urine Ketones Negative (Negative) 01/14/19 20:23 Urine Blood Negative (Negative) 01/14/19 20:23 Urine Nitrite Negative (Negative) 01/14/19 20:23 Urine Bilirubin Negative (Negative) 01/14/19 20:23 Urine Urobilinogen <2.0 mg/dL (<2.0) 01/14/19 20:23 Ur Leukocyte Esterase Small (Negative) H 01/14/19 20:23 Urine RBC 1 /hpf (0-5) 01/14/19 20:23 Urine WBC 5 /hpf (0-5) 01/14/19 20:23 Urine Mucus Occasional /hpf (None) H 01/14/19 20:23 Urine Opiates Screen Not Detected (NotDetected) 01/14/19 20:23 Ur Oxycodone Screen Not Detected (NotDetected) 01/14/19 20:23 Urine Methadone Screen Not Detected (NotDetected) 01/14/19 20:23 Ur Propoxyphene Screen Not Detected (NotDetected) 01/14/19 20:23 Ur Barbiturates Screen Not Detected (NotDetected) 01/14/19 20:23 U Tricyclic Antidepress Not Detected (NotDetected) 01/14/19 20:23 Ur Phencyclidine Scrn Not Detected (NotDetected) 01/14/19 20:23 Ur Amphetamines Screen Not Detected (NotDetected) 01/14/19 20:23 U Methamphetamines Scrn Not Detected (NotDetected) 01/14/19 20:23 U Benzodiazepines Scrn Not Detected (NotDetected) 01/14/19 20:23 Urine Cocaine Screen Not Detected (NotDetected) 01/14/19 20:23 U Marijuana (THC) Screen Detected (NotDetected) H 01/14/19 20:23 Vital Signs Temp 98 F 01/20/19 06:41 Pulse 70 01/20/19 06:41 Resp 18 01/20/19 06:41 BP 127/81 01/20/19 06:41 Pulse Ox 100 01/14/19 23:54 Patient Condition at Discharge: Stable Plan - Discharge Summary New Discharge Prescriptions: New Haloperidol Decanoate [Haldol D] 100 mg IM QMONTH #1 vial Discharge Medication List Haloperidol Decanoate [Haldol D] 100 mg IM QMONTH #1 vial 01/20/19 [Rx] Follow up Appointment(s)/Referral(s): None,Stated [Primary Care Provider] - 1-2 days Discharge Disposition: HOME SELF-CARE
== END 2019-01-20 14:40 | disposition home or self-care (01) | DRG 885 ==
LOC: EC 17:21 → 3MHU 22:32
PROVIDERS: ADMIT Psychiatry & Neurology Psychiatry; ATTEND Psychiatry & Neurology Psychiatry
DX: F20.9 Schizophrenia, unspecified (principal); F12.10 Cannabis abuse, uncomplicated; E86.0 Dehydration; I10 Essential (primary) hypertension; W57.XXXA Bitten or stung by nonvenomous insect and other nonvenomous arthropods, initial encounter; Z87.891 Personal history of nicotine dependence; Z88.0 Allergy status to penicillin
CPT/HCPCS: 36415; 71046; 80053; 80061; 80306; 81001; 82075; 82550; 83036; 84443; 85025; 87040; 96361; 96374; 99285

== ENCOUNTER 2022-09-18 16:56 | Emergency (ER) | payer MEDICARE, OTHER ==
[2022-09-18] MEDS ORDERED: KETOROLAC 15 MG/ML 1 ML VIAL IM STA (17:44)
[2022-09-18] MEDS ORDERED: HYDROcodone/APAP 5-325MG 1 EACH TAB PO STA (17:44)
--- NOTE | 2022-09-18 18:31 | XR ---
EXAMINATION TYPE: XR finger RT DATE OF EXAM: 09/18/2022 6:10 PM INDICATION: Patient age:Male; 67 years old; Reason for study: Pain and swelling; COMPARISON: None TECHNIQUE: Frontal, lateral and oblique views of the right hand were obtained. FINDINGS: Normal alignment of the visualized joints. No acute osseous pathology is identified. Soft tissue swelling the first digit metacarpal phalangeal joint without evidence for osseous erosion. IMPRESSION: 1. No acute osseous pathology. 2. Soft tissue swelling around the first digit, No evidence for osseous erosion to suggest osteomyel itis. Consider MRI for further evaluation.
[2022-09-18] MEDS ORDERED: DIPH,PERTUS(ACELL)TETVAC-LF 0.5 ML VIAL IM ONE (18:37)
--- NOTE | 2022-09-18 18:39 | ED ---
Extremity Problem HPI - General Chief complaint: Extremity Problem,Nontraumatic Stated complaint: infected R thumb Time Seen by Provider: 09/18/22 17:36 Source: patient, RN notes reviewed Mode of arrival: ambulatory Limitations: no limitations - History of Present Illness Initial comments: This is a 67-year-old male who presents to the emergency department for right thumb pain. States that he had a cut to the right thumb a couple of weeks ago. Shortly afterwards, he started to develop pain and swelling to most of the thumb. Pain is uncontrolled with ibuprofen and Tylenol. Denies any fevers or chills. Believes that he may have sustained a fracture by sleeping on his thumb wrong. At one point he felt like there was a "piece of gauze" in his thumb that he had to pull out. Unsure when his last tetanus vaccine was. Denies any fevers, chills, sore throat, cough, dyspnea, chest pain, palpitations, abdominal pain, nausea, vomiting, diarrhea, back pain, or headaches. MD Complaint: extremity pain, extremity swelling Onset/Timin -: week(s) - Related Data Previous Rx's Medication Instructions Recorded Haloperidol Decanoate [Haldol D] 100 mg IM QMONTH #1 vial 01/20/19 Sulfamethox-Tmp 800-160Mg [Bactrim 1 tab PO Q12HR 7 Days #14 tab 09/18/22 DS 800-160 mg] Allergies Allergy/AdvReac Type Severity Reaction Status Date / Time Penicillins Allergy Unknown Anaphylaxis Verified 09/18/22 17:30 Review of Systems ROS Statement: Those systems with pertinent positive or pertinent negative responses have been documented in the HPI. ROS Other: All systems not noted in ROS Statement are negative. Past Medical History Past Medical History: Hypertension History of Any Multi-Drug Resistant Organisms: None Reported Past Surgical History: Orthopedic Surgery Additional Past Surgical History / Comment(s): Left knee surg Past Psychological History: No Psychological Hx Reported, Bipolar, Depression, Schizophrenia Smoking Status: Never smoker Past Alcohol Use History: Occasional Past Drug Use History: Marijuana General Exam Limitations: no limitations General appearance: alert, in no apparent distress Head exam: Present: atraumatic, normocephalic, normal inspection Respiratory exam: Present: normal lung sounds bilaterally. Absent: respiratory distress, wheezes, rales, rhonchi, stridor Cardiovascular Exam: Present: regular rate, normal rhythm, normal heart sounds. Absent: systolic murmur, diastolic murmur, rubs, gallop, clicks Extremities exam: Present: other (Minor swelling and erythema to the right thumb with several overlying abrasions.) Neurological exam: Present: alert, oriented X3, CN II-XII intact Psychiatric exam: Present: normal affect, normal mood Course Vital Signs 09/18/22 09/18/22 17:26 19:09 Temperature 97.9 F 97.6 F Pulse Rate 63 53 L Respiratory 18 17 Rate Blood Pressure 147/96 150/99 O2 Sat by Pulse 100 97 Oximetry Medical Decision Making - Medical Decision Making This is a 67-year-old male who presents to the emergency department for right thumb pain and swelling. Was pt. sent in by a medical professional or institution? @ -No Did you speak to anyone other than the patient for history? @ -No Did you review nursing and triage notes? @ -Yes, and I agree, it is accurate with regards to the patient's symptoms. Were old charts reviewed? @ -No Differential Diagnosis? @ -Differential Thumb Pain/Swelling: Fracture, dislocation, cellulitis, gout, abscess, this is not meant to be an all-inclusive list. X-rays interpreted by me (1pt min.)? @ -X-ray of the right thumb obtained. My interpretation identify soft tissue swelling and no acute fractures. What testing was considered but not performed? (CT, X-rays, U/S, labs)? Why? @ -None What meds were considered but not given? Why? @ -None Did you discuss the management of the patient with other professionals? @ -No Did you reconcile home meds? @ -No Was smoking cessation discussed for >3mins.? @ -No Was critical care preformed (if so, how long)? @ -No Were there social determinants of health that impacted care today? How? (Homelessness, low income, unemployed, alcoholism, drug addiction, transportation, low edu. Level, literacy, decrease access to med. care, correction, rehab)? @ -No Was there de-escalation of care discussed even if they declined? (Discuss DNR or withdrawal of care, Hospice)? @ -No What co-morbidities impacted this encounter? (DM, HTN, Smoking, COPD, CAD, Cancer, CVA, Hep., AIDS, mental health diagnosis, sleep apnea, morbid obesity)? @ -None Was patient admitted / discharged? @ -Discharged. X-ray of the right thumb obtained revealing soft tissue swelling and no other acute findings. Physical exam is consistent with cellulitis. Patient's tetanus status was updated. Prescription for Bactrim provided with dosing instructions reviewed. Otherwise advised ibuprofen and Tylenol as needed for pain relief. Undiagnosed new problem with uncertain prognosis? @ -None Drug Therapy requiring intensive monitoring for toxicity (Heparin, Nitro, Insulin, Cardizem)? @ -None Were any procedures done? @ -None Diagnosis/symptom? @ -Right thumb cellulitis Acute, or Chronic, or Acute on Chronic? @ -Acute Uncomplicated (without systemic symptoms) or Complicated (systemic symptoms)? @ -Uncomplicated Side effects of treatment? @ -None Exacerbation, Progression, or Severe Exacerbation] @ -Not applicable Poses a threat to life or bodily function? @ -No Return precautions reviewed in depth, the patient is instructed to return to the emergency department with any new, worsening, or concerning symptoms. Patient verbalized understanding. This case was discussed in detail with the attending ED physician, Dr. Yan. Presentation, findings, and treatment plan discussed in detail as well. - Radiology Data Radiology results: report reviewed, image reviewed Disposition Clinical Impression: Cellulitis of right thumb Disposition: HOME SELF-CARE Instructions (If sedation given, give patient instructions): Cellulitis (ED) Additional Instructions: Return to the emergency department with any new, worsening, or concerning symptoms. Take the antibiotic as prescribed for 7 days. Alternate with ibuprofen and Tylenol as needed for pain relief. Follow up with your primary care provider in 1-2 days. Prescriptions: Sulfamethox-Tmp 800-160Mg [Bactrim DS 800-160 mg] 1 tab PO Q12HR 7 Days #14 tab Is patient prescribed a controlled substance at d/c from ED?: No Referrals: [facility] [Primary Care Provider] - 1-2 days
[2022-09-18] MEDS ORDERED: SULFAMETH-TMP DS STARTER PACK 2 TAB BTL PO STA (18:55)
[2022-09-18] MEDS ORDERED: ACET/COD 300 MG/30 MG STARTER PACK 6 TAB BTL PO STA (18:55)
[2022-09-18] MEDS ORDERED: IBUPROFEN 600 MG STARTER PACK 4 TAB BTL PO STA (18:55)
[2022-09-18 19:10] VITALS: BP 150/99; PULSE 53; RESP 17; TEMP 97.6
== END 2022-09-18 19:10 | disposition home or self-care (01) ==
LOC: EC 16:56
DX: L03.011 Cellulitis of right finger (principal); I10 Essential (primary) hypertension; F12.90 Cannabis use, unspecified, uncomplicated; Z23 Encounter for immunization; Z88.0 Allergy status to penicillin
CPT/HCPCS: 73140; 90715; 99283; 90471; 96372; J1885

== ENCOUNTER 2022-11-11 10:15 | Emergency (ER) | payer MEDICARE, OTHER ==
[2022-11-11] MEDS ORDERED: SODIUM CHLORIDE 0.9% 1,000 ML IV STA (10:21)
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
[2022-11-11 10:51] LABS: Basophils % (A) 1 %; Eosinophils # (A) 0.1 k/uL (0-0.7); Eosinophils % (A) 1 %; HCT 52.3 % (39.0-53.0); HGB 16.9 gm/dL (13.0-17.5); Lymphocytes # (A) 2.5 k/uL (1.0-4.8); Lymphocytes % (A) 33 %; MCH 31.5 pg (25.0-35.0); MCHC 32.3 g/dL (31.0-37.0); MCV 97.6 fL (80.0-100.0); Mean Platelet Volume 7.5; Monocytes # (A) 0.5 k/uL (0-1.0); Monocytes % (A) 6 %; Neutrophils # (A) 4.3 k/uL (1.3-7.7); Neutrophils % (A) 57 %; Platelet Count 306 k/uL (150-450); RBC 5.36 m/uL (4.30-5.90); RDW 15.5 % (11.5-15.5); WBC 7.5 k/uL (3.8-10.6)
[2022-11-11 11:08] LABS: ALT 57 U/L (4-49); AST 108 U/L (17-59); African American GFR (CKD) >90 (>60 ml/min/1.73 sqM); Albumin 4.1 g/dL (3.5-5.0); Alkaline Phosphatase 90 U/L (38-126); Amylase 148 U/L (30-110); Anion Gap 14 mmol/L; Blood Urea Nitrogen 7 mg/dL (9-20); Calcium 8.5 mg/dL (8.4-10.2); Carbon Dioxide 22 mmol/L (22-30); Chloride 108 mmol/L (98-107); Glucose 117 mg/dL (74-99); Lipase 99 U/L (23-300); Magnesium 1.8 mg/dL (1.6-2.3); Non-African American GFR(CKD) >90 (>60 ml/min/1.73 sqM); Phosphorus 2.8 mg/dL (2.5-4.5); Potassium 3.7 mmol/L (3.5-5.1); Sodium 144 mmol/L (137-145); Total Bilirubin 0.6 mg/dL (0.2-1.3); Total Protein 6.9 g/dL (6.3-8.2)
--- NOTE | 2022-11-11 11:11 | CT ---
EXAMINATION TYPE: CT brain steff chandler con DATE OF EXAM: 11/11/2022 COMPARISON: None HISTORY: Fall-ETOH CT DLP: 1186.[address] of the brain was performed. The ventricles, basal cisterns and sulci overlying the cerebral convexities demonstrate mild enlargem ent. There is no evidence for intracranial hemorrhage or sulcal effacement. There is decreased attenuatio n about the periventricular white matter and deep white matter of both cerebral hemispheres, compatib le with chronic small vessel ischemia. No mass effects are seen. If symptoms persist consider MRI. Osseous calvarium is intact. IMPRESSION: 1. Age related atrophic and chronic small vessel ischemic change without acute intracranial process seen at this time. CT Cervical Spine: Unenhanced CT of the cervical spine was performed with bone and soft tissue window settings submitted . Coronal and sagittal reconstruction is obtained. There is normal alignment and prevertebral soft tissues. No evidence for acute cervical fracture . Scattered degenerative disc disease and bridging spondylosis. Biapical scarring. IMPRESSION: 1. No evidence for acute fracture or subluxation of the cervical spine.
--- NOTE | 2022-11-11 11:12 | CT ---
EXAMINATION TYPE: CT facial bones wo con DATE OF EXAM: 11/11/2022 COMPARISON: None HISTORY: Fall-ETOH CT DLP: included in brain-cspine mGycm Unenhanced CT of the facial bones was performed in the axial and coronal planes. Bone and soft tissu e window settings are submitted. No significant soft tissue swelling is appreciated. I do not see evidence for displaced facial bone fracture or depressed facial bone fracture. The globes are intact. Paranasal sinuses are well-aerated. IMPRESSION: 1. No evidence for depressed or displaced facial bone fracture.
[2022-11-11 11:27] LABS: Alcohol 410 mg/dL
[2022-11-11 13:16] LABS: Amphetamine Screen,Urine Not Detected (NotDetected); Barbiturate Screen,Urine Not Detected (NotDetected); Benzodiazepines Screen,Urine Not Detected (NotDetected); Cocaine Screen,Urine Not Detected (NotDetected); Methadone Screen, Urine Not Detected (NotDetected); Opiate Screen,Urine Not Detected (NotDetected); Oxycodone Screen, Urine Not Detected (NotDetected); Phencyclidine Screen,Urine Not Detected (NotDetected); Tricyclic Antidepressant,Urine Not Detected (NotDetected); Urn Cannabinoid Scrn Detected (NotDetected)
[2022-11-11 18:43] VITALS: BP 144/95; PULSE 90; RESP 18; TEMP 98.2
== END 2022-11-11 18:43 | disposition home or self-care (01) ==
LOC: EC 10:15
DX: S00.81XA Abrasion of other part of head, initial encounter (principal); F10.129 Alcohol abuse with intoxication, unspecified; I10 Essential (primary) hypertension; F12.90 Cannabis use, unspecified, uncomplicated; Z88.0 Allergy status to penicillin; Y90.8 Blood alcohol level of 240 mg/100 ml or more; W19.XXXA Unspecified fall, initial encounter; Y92.410 Unspecified street and highway as the place of occurrence of the external cause
CPT/HCPCS: 36415; 93005; 80053; 82150; 83690; 83735; 84100; 85025; 80306; 72125; 70486; 70450; 99284; 96360; 96361 ×7; G0480; 80320